=== PATIENT | female | born 1975 | race Caucasian/White ===

== ENCOUNTER 2024-12-27 12:04 | Emergency (ER) | payer BC, OTHER ==
[~2024-12-27] VITALS: Ht 160 cm; Wt 73.1 kg
--- OUTSIDE RECORDS SUMMARY | 2024-12-27 12:12 | XMS ---
PreManage Notification: NITZA APPIAH [employer] T[employer] Events No recent Security Events currently on file CRITERIA MET - [facility] - 2 Visits in 30 Days CARE PROVIDERS Shikha CHANEY Internal [facility] Current PHONE: Unknown LUZ MARINA LGEASON [facility] Current PHONE: [phone] Janie has no Care Guidelines for this patient. Funmi VISIT COUNT (12 MO.) 3 Grant Patel ([facility]) [address] [place] [address] TOTAL 4 NOTE: Visits indicate total known visits. ED/UCC VISIT TRACKING (12 MO.) 12/27/2024 12:05 KARLA Mon TYPE: Emergency COMPLAINT: - FLANK PAIN 12/27/2024 10:49 Grant [facility] [place] ([facility]) TYPE: Emergency DIAGNOSES: - back pain 10/13/2024 17:51 Grant [facility] [place] ([facility]) TYPE: Emergency DIAGNOSES: - Epigastric pain - abdominal pain 08/31/2024 12:45 Grant BISWAS ([facility]) TYPE: Emergency DIAGNOSES: - Elevated white blood cell count, unspecified - Other specified abnormal findings of blood chemistry - Unspecified abdominal pain - Abdominal Pain INPATIENT VISIT TRACKING (12 MO.) No inpatient visits to display in this time frame [email or web address]
[2024-12-27] MEDS ORDERED: OXYCODONE/APAP 5/325 TAB PO ONE (12:30)
[2024-12-27 12:32] LABS: BASOPHILS 0.9 % (0-2); BILIRUBIN, URINE NEGATIVE (negative); BLOOD/HGB, URINE MODERATE (Negative); EOSINOPHILS 2.9 % (0-6); HEMATOCRIT 39.5 % (35.0-50.0); HEMOGLOBIN 13.3 g/dL (12.0-18.0); KETONE, URINE NEGATIVE (Negative); LEUK ESTERASE, URINE NEGATIVE (negative); LYMPHOCYTES 35.7 % (24-44); MCH 28.8 (27-36); MCHC 33.8 g/dl (30-36); MCV 85.2 fl (81-99); MONOCYTES 7.2 % (0-12); NEUTROPHILS 53.3 % (39-80); NITRITE, URINE NEGATIVE (negative); PH, URINE 5.5 (5-7); PLATELET COUNT 312 K/uL (140-440); RBC 4.64 M/ul (4.3-5.7)
[2024-12-27 12:38] LABS: BACTERIA, URINE RARE /hpf (negative); CASTS, URINE NONE SEEN \\lpf; COLLECTION TYPE, URINE CLEAN CATCH; EPITHELIAL CELLS, URINE NONE SEEN /lpf (0-1+); REFLEX CULTURE, URINE No (No); WHITE BLOOD CELLS, URINE 0-1 /HPF (0-5)
[2024-12-27 12:39] LABS: CRYSTALS, URINE CALCIUM OXALATE 2+ (0-1+)
[2024-12-27] MEDS ORDERED: ESTRADIOL2 MG PO (12:41)
[2024-12-27] MEDS ORDERED: GABAPENTIN300 MG PO (12:41)
[2024-12-27] MEDS ORDERED: MONTELUKAST SODI5 MG PO (12:41)
[2024-12-27] MEDS ORDERED: CLONIDINE HCL0.1 MG PO (12:42)
[2024-12-27] MEDS ORDERED: LAMOTRIGINE200 MG PO (12:42)
[2024-12-27] MEDS ORDERED: METOPROLOL SUC100 MG PO (12:42)
[2024-12-27] MEDS ORDERED: DULOXETINE HCL60 MG PO (12:43)
[2024-12-27] MEDS ORDERED: BACLOFEN10 MG PO (12:43)
[2024-12-27] MEDS ORDERED: TELMISARTAN40 MG PO (12:44)
[2024-12-27] MEDS ORDERED: FLUTICASONE PRO16 GM NAS (12:44)
[2024-12-27] MEDS ORDERED: ZYRTEC10 MG PO (12:44)
[2024-12-27] MEDS ORDERED: VENTOLIN HFA18 GM INH (12:45)
[2024-12-27] MEDS ORDERED: TRIAMCINOLONE A15 G3 TOP (12:45)
[2024-12-27 12:46] LABS: ALBUMIN 3.4 g/dL (3.4-5.0); ALBUMIN/GLOBULIN RATIO 0.97 (1.1-2.4); ANION GAP 8.7 (7-21); BILIRUBIN, TOTAL 0.4 mg/dL (0.2-1.0); BUN/CREATININE RATIO 17.56 (6.0-28.6); CALCIUM 8.4 mg/dL (8.5-10.1); CREATININE, SERUM 0.74 mg/dL (0.55-1.02); POTASSIUM 3.7 mmol/L (3.5-5.1); PROTEIN, TOTAL 6.9 g/dL (6.4-8.2)
[2024-12-27] MEDS ORDERED: ESTRADIOL42.5 GM TOP (12:46)
[2024-12-27 16:05] VITALS: BP 134/86
== END 2024-12-27 16:00 | disposition home or self-care (01) ==
LOC: ED 12:04
PROVIDERS: Emergency Medicine
DX: R10.9 Unspecified abdominal pain (principal); I10 Essential (primary) hypertension; E78.5 Hyperlipidemia, unspecified; E03.9 Hypothyroidism, unspecified; Z87.442 Personal history of urinary calculi; Z88.6 Allergy status to analgesic agent; Z88.5 Allergy status to narcotic agent; Z88.2 Allergy status to sulfonamides; Z88.1 Allergy status to other antibiotic agents; Z88.8 Allergy status to other drugs, medicaments and biological substances; Z91.040 Latex allergy status; Z79.899 Other long term (current) drug therapy
CPT/HCPCS: 36415; 74176; 80053; 81001; 83690; 85025; 99284-25